=== PATIENT | male | born 2000 | race African-American/Black ===

== ENCOUNTER 2022-12-23 18:15 | Emergency (ER) | payer MEDICAID ==
[~2022-12-23] VITALS: Ht 172.7 cm; Wt 85.0 kg
[2022-12-23 18:20] VITALS: BP 129/79
[2022-12-23] MEDS ORDERED: IBUPROFEN 600MG TABLET PO ONE (19:30)
== END 2022-12-23 20:27 | disposition left against medical advice (07) ==
LOC: ER 18:15
DX: M25.522 Pain in left elbow (principal); M25.521 Pain in right elbow
CPT/HCPCS: 99281